=== PATIENT | female | born 1965 | race Caucasian/White ===

== ENCOUNTER 2017-06-23 08:37 | Day surgery (SDC) | payer OTHER ==
--- NOTE | 2017-06-23 10:29 | Operative Note ---
Colonoscopy ([facility]) Procedure date: 06/23/17 Date of : 65 Procedure:Colonoscopy Colonoscopy with cold snare polypectomy Indications: Mrs. Fair is a 51-year-old female who is here for initial screening colonoscopy. The patient does have some mild tendency towards constipation. She reports no abdominal pain, weight loss, change in her bowel habits or rectal bleeding. She reports no family history of colon cancer. Performing Provider: Jenna Alonzo MD Referrring Provider: Jarrett Lorenzana M.D. Sedation: Fentanyl 200 mg IV/Versed 9 mg IV Procedure: Prior to the procedure, a history and physical exam was performed, and patient medications and allergies were reviewed. The risks and benefits of the procedure and the sedation options and risks were discussed with the patient. All questions were answered and informed consent was obtained. Patient identification and proposed procedure were verified by the physician and the nurse. The patient was placed in a left lateral decubitus position. Throughout the procedure, the patient's blood pressure, pulse, and oxygen saturations were monitored continuously. Findings: On digital rectal examination there was normal rectal tone. There were no external hemorrhoids. The colonoscope was introduced through the anal canal to the rectum and advanced to the cecum. The ileocecal valve and appendiceal orifice were identified. The scope was advanced a short distance into the ileum which appeared grossly normal. The scope was then withdrawn into the colon. The cecum, ascending and transverse colon and mucosa were grossly normal. There were very mildly scattered diverticuli throughout the colon but more predominantly in the descending and sigmoid colon (LEFT colon). There was a single hyperplastic- appearing 4 mm polyp in the lower sigmoid colon removed via cold snare polypectomy. The rectum itself was normal. Upon retroflexion within the rectum there were grade 1 internal hemorrhoids. Impressions: 1. Diminutive hyperplastic-appearing sigmoid polyp 2. Mild pandiverticulosis 3. Grade 1 internal hemorrhoids Recommendations: If the polyp is hyperplastic, the patient will not require screening/ surveillance colonoscopy again for 10 years by ACS outlines. I would encourage a fiber bowel regimen on a long-term daily maintenance basis. Complications: None EBL (ml): 0 at 1026
[2017-06-23 16:42] VITALS: BP 88/55
== END 2017-06-23 11:55 | disposition home or self-care (01) ==
LOC: SDC 08:37
PROVIDERS: Internal Medicine Gastroenterology
PROC: 0DBN8ZX Excision of Sigmoid Colon, Via Natural or Artificial Opening Endoscopic, Diagnostic (ICD-10-PCS; principal; 2017-06-23 10:30)
DX: Z12.11 Encounter for screening for malignant neoplasm of colon (principal); K63.5 Polyp of colon; K57.32 Diverticulitis of large intestine without perforation or abscess without bleeding; K64.0 First degree hemorrhoids